=== PATIENT | female | born 1995 | race Caucasian/White ===

== ENCOUNTER 2023-07-21 14:15 | Emergency (ER) | payer MEDICAID, OTHER ==
[~2023-07-21] VITALS: Ht 160 cm; Wt 61.7 kg
[2023-07-21 15:00] LABS: BASOPHILS % (AUTO) 0.2 % (0.0-2.0); EOSINOPHILS # (AUTO) 0.1 K/uL (0.0-0.7); EOSINOPHILS % (AUTO) 2.3 % (0.0-7.0); HEMATOCRIT 39.7 % (31.2-41.9); HEMOGLOBIN 13.4 g/dL (10.9-14.3); LYMPHOCYTES # (AUTO) 1.9 K/uL (0.8-4.8); LYMPHOCYTES % (AUTO) 35.7 % (20.5-51.5); MEAN CORPUSCULAR HEMOGLOBIN 28.7 uug (24.7-32.8); MEAN CORPUSCULAR HGB CONC 34 g/dL (32.3-35.6); MONOCYTES # (AUTO) 0.5 K/uL (0.1-1.30); MONOCYTES % (AUTO) 9.4 % (0.0-11.0); NEUTROPHILS # (AUTO) 2.8 K/uL (1.8-8.9); NEUTROPHILS % (AUTO) 52.4 % (38.5-71.5); PLATELET COUNT (AUTO) 273 K/uL (179-408); RED BLOOD CELL COUNT(AUTO) 4.67 MIL/uL (3.63-4.92); RED CELL DISTRIBUTION WIDTH 13.3 % (12.3-17.7); WHITE BLOOD COUNT (AUTO) 5.3 K/uL (3.8-11.8)
[2023-07-21 15:01] LABS: DIFFERENTIAL COMMENT 1
[2023-07-21 15:16] LABS: CALCIUM 8.8 mg/dL (8.5-10.1); CARBON DIOXIDE 28 mmol/L (21-32); CHLORIDE 107 mmol/L (98-107); CREATININE 0.6 mg/dL (0.6-1.3); GLUCOSE 84 mg/dL (74-106); SODIUM SERUM 141 mmol/L (136-145); UREA NITROGEN, BLOOD 7 mg/dL (7-18)
[2023-07-21 15:29] LABS: ALANINE AMINOTRANSFERASE 28 U/L (14-59); ALBUMIN 3.8 g/dL (3.4-5.0); ALKALINE PHOSPHATASE 77 U/L (50-136); ASPARTATE AMINOTRANSFERASE 14 U/L (15-37); BILIRUBIN,DIRECT 0.2 mg/dL (0.0-0.2); BILIRUBIN,TOTAL 0.6 mg/dL (0.2-1.0); NT-PRO BNP 10 pg/mL (0-125); TOTAL PROTEIN, SERUM 7.4 g/dL (6.4-8.2)
[2023-07-21 15:48] VITALS: BP 120/79; O2SAT 98
== END 2023-07-21 15:48 | disposition home or self-care (01) ==
LOC: ER 14:15
DX: R07.89 Other chest pain (principal); R10.2 Pelvic and perineal pain
CPT/HCPCS: 36415; 71045; 84484; 85025; 85730; 93005; A4606; A4663

== ENCOUNTER 2024-10-09 14:06 | Emergency (ER) | payer MEDICAID ==
[~2024-10-09] VITALS: Ht 160 cm; Wt 63.5 kg
[2024-10-09 14:24] VITALS: O2SAT 100
[2024-10-09] MEDS ORDERED: FAMOTIDINE 20 MG TABLET ONE (14:40)
[2024-10-09] MEDS: FAMOTIDINE 20 MG TABLET PO ONE (14:41)
[2024-10-09] MEDS ORDERED: FAMO-132 PO (14:43)
== END 2024-10-09 15:08 | disposition home or self-care (01) ==
LOC: ER 14:06
DX: K30 Functional dyspepsia (principal)
CPT/HCPCS: A4606; A4663